=== PATIENT | male | born 1935 | race Caucasian/White ===

== ENCOUNTER → 2023-07-24 | Outpatient (CLI) | payer MEDICARE | END | disposition home or self-care (01) | LOC: RESCLI 09:41 | PROVIDERS: ATTEND Family Medicine | DX: I26.99 Other pulmonary embolism without acute cor pulmonale (principal); I25.10 Atherosclerotic heart disease of native coronary artery without angina pectoris; K21.9 Gastro-esophageal reflux disease without esophagitis; J44.9 Chronic obstructive pulmonary disease, unspecified; N39.0 Urinary tract infection, site not specified; M19.90 Unspecified osteoarthritis, unspecified site; C44.90 Unspecified malignant neoplasm of skin, unspecified; M54.12 Radiculopathy, cervical region; M54.16 Radiculopathy, lumbar region; I10 Essential (primary) hypertension; N40.0 Benign prostatic hyperplasia without lower urinary tract symptoms; E78.5 Hyperlipidemia, unspecified; Z79.899 Other long term (current) drug therapy; Z88.8 Allergy status to other drugs, medicaments and biological substances; Z98.890 Other specified postprocedural states ==